=== PATIENT | female | born 1985 | race Caucasian/White ===

== ENCOUNTER 2016-10-23 17:11 | Emergency (ER) | payer OTHER ==
[~2016-10-23] VITALS: Ht 172.7 cm; Wt 68.0 kg
[2016-10-23 17:45] VITALS: BP 121/74; PULSE 62; RESP 16; TEMP 98.6; O2SAT 99
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
== END 2016-10-23 18:34 ==
LOC: NEPD 17:11
DX: M54.2 Cervicalgia (principal); M54.5 Low back pain; V53.6XXA Passenger in pick-up truck or van injured in collision with car, pick-up truck or van in traffic accident, initial encounter; Y92.414 Local residential or business street as the place of occurrence of the external cause
CPT/HCPCS: 99283